=== PATIENT | male | born 1950 | race Caucasian/White ===

== ENCOUNTER 2016-06-19 19:47 | Emergency (ER) | payer MEDICARE, OTHER ==
[2016-06-19 19:59] VITALS: BP 117/86
[2016-06-19] MEDS ORDERED: ALBUTEROL SULFATE 2.5 MG/3 ML VIAL.NEB IH ONE (20:30)
[2016-06-19] MEDS ORDERED: ALBUTEROL SULFATE 2.5 MG/0.5 ML VIAL.NEB IH ONE ×2 (20:34→20:39)
--- OUTSIDE RECORDS SUMMARY | 2016-06-19 20:42 | XMS REPORT | Continuity of Care Document ---
:1950 Author Organization [facility] [place] [address] Care Team Providers Name Role Phone Brijesh Garibay Primary Care Provider [phone] Source Comments This disclosure is being made pursuant to the [employer] program and maynot contain all information available regarding this patient.[facility] Active Allergies and Adverse Reactions Allergen Noted Date Severity Reactions Comments Penicillins 03/20/2016 Low Dizziness Tomato 03/20/2016 High Hives Current Medications Be aware that medications may not be up to date as of this document. Alwaysverify current medications with the patient. Prescription Sig. Disp. Refills Start Date End Date Status albuterol (PROAIR Inhale 2 puffs Active HFA;PROVENTIL into the lungs HFA;VENTOLIN HFA) 108 every 4 (four) (90 BASE) MCG/ACT hours as needed inhaler for Wheezing. Ipratropium-Albuterol Inhale into the Active (COMBIVENT IN) lungs. budesonide-formoterol Inhale 2 puffs 0 12/20/2015 Active (SYMBICORT) 160-4.5 into the lungs 2 MCG/ACT inhaler (two) times daily. insulin detemir Inject 18 Units 1 Units 0 12/21/2015 Active (LEVEMIR) 100 UNIT/ML into the skin injection - vial nightly. atorvastatin (LIPITOR) Take 1 tablet by 90 tablet 1 12/21/2015 Active 80 MG tablet mouth daily. Insulin Pen Needle 32G 1 each by Does not 100 each 11 01/07/2016 Active X 4 MM MISC apply route daily. glucose blood Use as instructed 100 each 0 03/22/2016 Active (FREESTYLE TEST to check blood STRIPS) test strip sugar twice daily levothyroxine Take 1 tablet by 90 tablet 0 04/04/2016 Active (SYNTHROID, mouth every LEVOTHROID) 175 MCG morning. tablet traZODone (DESYREL) Take 1 tablet by 90 tablet 1 04/09/2016 Active 100 MG tablet mouth nightly. glipiZIDE ER Take 1 tablet by 90 tablet 1 04/09/2016 Active (GLUCOTROL XL) 5 MG 24 mouth daily. hr tablet baclofen (LIORESAL) 10 Take 1 tablet by 90 tablet 1 04/09/2016 Active MG tablet mouth 2 (two) times daily as needed. Active Problems Problem Noted Date Acquired hypothyroidism 03/20/2016 Non morbid obesity due to excess calories 12/21/2015 Mixed hyperlipidemia 12/21/2015 Type 2 diabetes mellitus without complication, with long-term current use 03/2016 of insulin ([facility]) Smoking 12/20/2015 Mild persistent asthma without complication 12/20/2015 Most Recent Encounters Date Type Specialty Providers Description 04/19/2016 Telephone Family Medicine Noreen Ruelas CMA Medication Update 04/04/2016 Telephone Family Medicine Quin Kahn, Medication Refill [facility] 04/04/2016 Refill Family Medicine Brijesh Garibay, Type 2 diabetes mellitus without complication, with long-term current use of insulin ([facility]) (Primary Dx); Muscle spasm 03/22/2016 Orders Only Family Medicine Noreen Ruelas CMA Mixed hyperlipidemia (Primary Dx); Acquired hypothyroidism; Type 2 diabetes mellitus without complication, with long-term current use of insulin ([facility]) 03/21/2016 Telephone Family Medicine Quin Kahn, Medication Management [facility] Immunizations Name Dates Previously Given Next Due Influenza, Inactivated, Trivalent, High Dose, 65Y and 12/20/2015 Older Pneumococcal Polysaccharide-23 12/20/2015 Social History Tobacco Use Types Packs/Day Years Used Date Current Every Day Smoker Smokeless Tobacco: Never Used Tobacco Cessation:Counseling Given: Yes Comments: Alcohol Use Drinks/Week oz/Week Comments No Last Filed Vital Signs Vital Sign Reading Time Taken Blood Pressure 128/74 03/20/2016 2:32 PM WELDING MACHINE OPERATOR SUBMERGED ARC Pulse 72 03/20/2016 2:32 PM WELDING MACHINE OPERATOR SUBMERGED ARC Temperature 36.9 C (98.4 F) 03/20/2016 2:32 PM WELDING MACHINE OPERATOR SUBMERGED ARC Respiratory Rate 16 03/20/2016 2:32 PM WELDING MACHINE OPERATOR SUBMERGED ARC Height 1.727 m (5' 8") 03/20/2016 2:32 PM WELDING MACHINE OPERATOR SUBMERGED ARC Weight 82.101 kg (181 lb) 03/20/2016 2:32 PM WELDING MACHINE OPERATOR SUBMERGED ARC Body Mass Index 27.53 03/20/2016 2:32 PM WELDING MACHINE OPERATOR SUBMERGED ARC Oxygen Saturation - - Plan of Care Patient Goal Type Goal Result Component HEMOGLOBIN A1C below 7.0 Health Maintenance Due Date Last Done Comments Eye (Ophthalmology) Exam 1960 Hepatitis C Screening 1968 Colonoscopy 2000 Well Adult Visit 2000 Zoster Vaccine 60+ 2010 AAA Screening (Medicare 07/15/2015 Covered) Foot Exam 12/19/2016 12/20/2015 Pneumococcal Low/Medium Risk 12/19/2016 12/20/2015 65+ (2 of 2 - PCV13) Lab-Lipids 03/21/2017 03/21/2016, 12/20/2015 Lab-Urine Microalbumin 03/21/2017 03/21/2016 Tetanus/Pertussis (1 - Tdap) 06/06/2017 Postponed from 1969 (Insurance / Financial) Influenza Immunization Completed 12/20/2015 Results from Last 3 Months TSH (03/21/2016 10:40 AM) Component Value Range TSH 0.83Comment:Test performed at [facility], [address] 0.36-3.74 uIU/ mL [place], [place] Microalbumin Urine Random (03/21/2016 10:40 AM) Component Value Range Microalbumin Random UR 13.5Comment:Test performed at [facility], < 31 mg/L [address] [place], [place] Lipid panel (03/21/2016 10:40 AM) Component Value Range Cholesterol, Total 106(L) 120-200 mg/dL Triglycerides 68 <150 mg/dL HDL Cholesterol 46 >39 mg/dL LDL 46 <100 mg/dL Cholesterol/HDL Ratio 2.3 VLDL Cholesterol 14Comment:Test performed at [facility], <35 mg/dL [address] [place], [place] Hemoglobin A1c (03/21/2016 10:40 AM) Component Value Range Hemoglobin A1C 7.2(H)Comment: 4.2-5.6 % ---- ADA Guidelines: 5.7-6.4% indicates increased risk of diabetes. Greater than 6.4% is diagnostic of diabetes. Less than 7% meets treatment goal of ADA. ---- Estimated Avg Glucose 160Comment: mg/dL Glucose value is an estimate of the patient's average glucose over the last 60 to 90 days, based on the measured HgbA1c value. Test performed at [facility], [address] [place], [place], [place]
--- OUTSIDE RECORDS SUMMARY | 2016-06-19 20:42 | XMS REPORT | Continuity of Care Document ---
:1950 Author Organization [facility] ([facility]) Address [address] [place] [address] Phone [phone] Care Team Providers Name Role Phone Abhijeet Brumfield Primary Care Provider [phone] Source Comments This disclosure is being made pursuant to the Care Everywhere program, applicable federal and state laws, and may not contain all informaitonavailable regarding this patient.[facility] ([facility]) Active Allergies and Adverse Reactions No Active Allergies Current Medications Not on file Active Problems Problem Noted Date Other and unspecified hyperlipidemia 02/20/2008 Unspecified hypothyroidism 02/20/2008 Head injury, unspecified 10/20/2006 Immunizations Name Dates Previously Given Next Due Influenza, unspecified 02/10/2008,02/14/2005 Social History Tobacco Use Types Packs/Day Years Used Date Never Assessed Last Filed Vital Signs Vital Sign Reading Time Taken Blood Pressure 130/82 02/20/2008 12:56 PM TRANSFER DRIVER Pulse 72 02/20/2008 12:56 PM TRANSFER DRIVER Temperature 35.3 C (95.54 F) 02/20/2008 12:56 PM TRANSFER DRIVER Respiratory Rate 12 02/20/2008 12:56 PM TRANSFER DRIVER Height - - Weight 88.796 kg (195 lb 12.2 oz) 02/20/2008 12:56 PM TRANSFER DRIVER Body Mass Index - - Oxygen Saturation - - Plan of Care Health Maintenance Due Date Last Done Comments HCV Screening 1950 Hepatitis B Vaccine (1 of 3 - Primary 1950 Series) Tdap Vaccine 1961 Lipid Disorder Screening 1968 Td Vaccine 1968 Colonoscopy 07/13/2000 Prostate Cancer Screening 2000 Zoster Vaccine 2010 Pneumococcal Vaccine (1 of 2 - PCV13) 07/15/2015 Influenza Vaccine: Seasonal (#1) 11/08/2015 02/10/2008, 02/14/2005 Results from Last 3 Months Not on file
--- NOTE | 2016-07-13 19:11 | ERNOTE ---
Dyspnea - General Presenting Symptoms: shortness of breath Time Seen by Provider: 06/19/16 20:04 Source: patient Exam Limitations: no limitations - Immun/Allergies/Home Medications Immunizations: IMMUNIZATION HX Immunizations Up to Date Yes History of Influenza Vaccine Yes Hx Pneumococcal Vaccination Yes Allergies/Adverse Reactions: Allergies amoxicillin Allergy (Verified 06/19/16 20:16) Penicillins Allergy (Verified 06/19/16 20:16) tomato Allergy (Verified 06/19/16 19:52) Home Medications: HOME MEDICATIONS Albuterol Sulfate [Ventolin Hfa] 1 inh INH Q5H PRN #1 inhaler 06/19/16 [Last Taken Unknown] Baclofen 10 mg PO BID 06/19/16 [Last Taken Unknown] Insulin Detemir [Levemir] 18 units SC HS 06/19/16 [Last Taken Unknown] Ipratropium/Albuterol Sulfate [Combivent Respimat Inhal [place]] 1 puff IH QID #1 aer.w.adap 06/19/16 [Last Taken Unknown] Levothyroxine Sodium [Tirosint] 175 mcg PO DAILY 06/19/16 [Last Taken Unknown] traZODone HCL [Oleptro ER] 100 mg PO HS 06/19/16 [Last Taken Unknown] Atorvastatin Calcium [Lipitor] 80 mg PO DAILY 06/24/16 [Last Taken Unknown] glipiZIDE [Glucotrol Xl] 5 mg PO DAILY 06/24/16 [Last Taken Unknown] - History of Present Illness Narrative: Patient has been out of his inhalers for two week and get more out of breath especially at night and can't get in with a PCP for another two week, just wants refill on his medication Initiating event: Reports: out of meds Frequency of episodes: Reports: occassional episodes Review of Systems - Review of Systems Constitutional: Absent: recent illness, fever Respiratory: Present: shortness of breath, cough Cardiology: Absent: chest pain Gastrointestinal/Abdominal: Absent: nausea, abdominal pain Genitourinary: Present: no symptoms reported Musculoskeletal: Present: no symptoms reported - Patient's Past Medical History Patient History - Medical: No pertinent hx Patient History - Cardiac/Respiratory: COPD Patient History - Cancer: No Hx of Cancer Patient History - Surgical Procedures: T & A Patient History - Other: None - Social History Living Situations: home Abuse History: No History of abuse Psych History: No pertinent hx Smoking Status: Former smoker Have you smoked in the past 12 months: Yes Do you dip or chew tobacco: No Smoking Stop Date: 06/12/16 Patient requests Smoking Cessation Consult: No Initiate information on Smoking Cessation: No Alcohol Use: none Drug Use: none - Immunizations Immunizations Up to Date: Yes Hx Pneumococcal Vaccination: Yes History of Influenza Vaccine: Yes Physical Exam - Physical Exam General Appearance: Present: wd/wn, alert, no apparent distress Respiratory: Present: no respiratory distress, lungs clear, decreased breath sounds Cardiovascular/Chest: Present: regular rate, rhythm Neurological Exam: Present: alert, oriented, normal mood/affect Skin Exam: Present: normal color, warm/dry ED Progress - Vital Signs Patient's Vital Signs:: I have reviewed the patient's vital signs. - Progress/Reassessment Chief Complaint: Dyspnea Departure Clinical Impression: COPD (chronic obstructive pulmonary disease) Qualifiers: COPD type: unspecified COPD Qualified Code(s): J44.9 - Chronic obstructive pulmonary disease, unspecified - Departure Disposition: Home self-care Condition: Good Instructions: Chronic Obstructive Pulmonary Disease, [id number] Additional Instructions: a prescription for your inhalers was send to the pharmacy take all your medications as prescribed and follow up with your doctor as scheduled Referrals: Billie Renteria ARNP [Non Staff Physicians] - Prescriptions: Albuterol Sulfate [Ventolin Hfa] 1 inh INH Q5H PRN #1 inhaler PRN Reason: Shortness Of Breath/Wheezing Ipratropium/Albuterol Sulfate [Combivent Respimat Inhal [place]] 1 puff IH QID #1 aer.w.adap
== END 2016-06-19 21:03 | disposition home or self-care (01) ==
LOC: ER 19:47
DX: J44.9 Chronic obstructive pulmonary disease, unspecified (principal); Z72.0 Tobacco use

== ENCOUNTER 2016-06-24 22:02 | Emergency (ER) | payer MEDICARE, OTHER ==
[2016-06-24] MEDS ORDERED: ALBUTEROL SULFATE/IPRATROPIUM 3 ML NEBU IH ONE ×2 (22:34→22:38)
[2016-06-24] MEDS ORDERED: METHYLPREDNISOLONE SOD SUCC/PF 40 MG/ML VIAL IV ONE (22:35)
[2016-06-24] MEDS ORDERED: METHYLPREDNISOLONE SOD SUCC/PF 125 MG/2 ML VIAL ONE (22:36)
[2016-06-24] MEDS ORDERED: ALBUTEROL SULFATE 2.5 MG/0.5 ML VIAL.NEB IH ONE (22:36)
--- OUTSIDE RECORDS SUMMARY | 2016-06-24 22:36 | XMS REPORT | Continuity of Care Document ---
:1950 Author Organization [facility] [place] [address] Care Team Providers Name Role Phone Brijesh Garibay Primary Care Provider [phone] Source Comments This disclosure is being made pursuant to the [employer] program and maynot contain all information available regarding this patient.[facility] Active Allergies and Adverse Reactions Allergen Noted [...] with long-term current use 03/2016 of insulin ([facility]) Smoking 12/20/2015 Mild persistent asthma without complication 12/20/2015 Most Recent Encounters Date Type Specialty Providers Description 04/19/2016 Telephone Family Medicine Noreen Ruelas CMA Medication Update 04/04/2016 Telephone Family Medicine Quin Kahn CMA Medication Refill 04/04/2016 Refill Family Medicine Brijesh Garibay DO Type 2 diabetes mellitus without complication, with long-term current use of insulin ([facility]) (Primary Dx); Muscle spasm Immunizations Name Dates Previously Given Next Due Influenza, Inactivated, Trivalent, High Dose, 65Y and 12/20/2015 Older Pneumococcal Polysaccharide-23 12/20/2015 Social History Tobacco Use Types Packs/Day Years Used Date Current Every Day Smoker Smokeless Tobacco: Never Used Tobacco Cessation:Counseling Given: Yes Comments: Alcohol Use Drinks/Week oz/Week Comments No Last Filed Vital Signs Vital Sign Reading Time Taken Blood Pressure 128/74 03/20/2016 2:32 PM TEACHER AIDE Pulse 72 03/20/2016 2:32 PM TEACHER AIDE Temperature 36.9 C (98.4 F) 03/20/2016 2:32 PM TEACHER AIDE Respiratory Rate 16 03/20/2016 2:32 PM TEACHER AIDE Height 1.727 m (5' 8") 03/20/2016 2:32 PM TEACHER AIDE Weight 82.101 kg (181 lb) 03/20/2016 2:32 PM TEACHER AIDE Body Mass Index 27.53 03/20/2016 2:32 PM TEACHER AIDE Oxygen Saturation - - Plan of Care [...] Completed 12/20/2015 Results from Last 3 Months Not on file
--- OUTSIDE RECORDS SUMMARY | 2016-06-24 22:36 | XMS REPORT | Continuity of Care Document ---
:1950 Author Organization [facility] ([facility]) Address [address] [place] [address] Phone [phone] Care Team Providers Name Role Phone Abhijeet Brumfield Primary Care Provider [phone] Source Comments This disclosure is being made pursuant to the Care Everywhere program, applicable federal and state laws, and may not contain all informaitonavailable regarding this patient.[facility] ([facility]) Active Allergies and Adverse Reactions No Active [...] Taken Blood Pressure 130/82 02/20/2008 12:56 PM SHAMPOO TECHNICIAN Pulse 72 02/20/2008 12:56 PM SHAMPOO TECHNICIAN Temperature 35.3 C (95.54 F) 02/20/2008 12:56 PM SHAMPOO TECHNICIAN Respiratory Rate 12 02/20/2008 12:56 PM SHAMPOO TECHNICIAN Height - - Weight 88.796 kg (195 lb 12.2 oz) 02/20/2008 12:56 PM SHAMPOO TECHNICIAN Body Mass Index - - Oxygen Saturation [...]
[2016-06-24] MEDS ORDERED: ALBUTEROL SULFATE 200 PUFF INHALER IH ONE (23:05)
[2016-06-24] MEDS ORDERED: ALBUTEROL SULFATE 60 PUFF INHALER IH ONE (23:14)
[2016-06-24 23:42] VITALS: BP 115/73
--- NOTE | 2016-06-25 08:38 | ERNOTE ---
Dyspnea - General Presenting Symptoms: shortness of breath Time Seen by Provider: 06/24/16 22:29 - Immun/Allergies/Home Medications Immunizations: IMMUNIZATION HX Immunizations Up to Date Yes History of Influenza Vaccine Yes Hx Pneumococcal Vaccination Yes Allergies/Adverse Reactions: Allergies amoxicillin Allergy (Verified 06/19/16 20:16) Penicillins Allergy (Verified 06/19/16 20:16) tomato Allergy (Verified 06/19/16 19:52) Home Medications: HOME MEDICATIONS Albuterol Sulfate [Ventolin Hfa] 1 inh INH Q5H PRN #1 inhaler 06/19/16 [Last Taken Unknown] Baclofen 10 mg PO BID 06/19/16 [Last Taken Unknown] Insulin Detemir [Levemir] 18 units SC HS 06/19/16 [Last Taken Unknown] Ipratropium/Albuterol Sulfate [Combivent Respimat Inhal [place]] 1 puff IH QID #1 aer.w.adap 06/19/16 [Last Taken Unknown] Levothyroxine Sodium [Tirosint] 175 mcg PO DAILY 06/19/16 [Last Taken Unknown] Trazodone HCl [Oleptro ER] 100 mg PO HS 06/19/16 [Last Taken Unknown] Atorvastatin Calcium [Lipitor] 80 mg PO DAILY 06/24/16 [Last Taken Unknown] Glipizide [Glucotrol Xl] 5 mg PO DAILY 06/24/16 [Last Taken Unknown] - History of Present Illness Narrative: pt is out of his inhalers and states that he feels short of breath. Denies any fevers or chills. does not feel sick. he feels short of breath. Review of Systems - Review of Systems Constitutional: Present: no symptoms reported EYE: Present: no symptoms reported ENT: Present: no symptoms reported Respiratory: Present: See HPI Cardiology: Present: no symptoms reported Gastrointestinal/Abdominal: Present: no symptoms reported Genitourinary: Present: no symptoms reported - Patient's Past Medical History Patient History - Medical: No pertinent hx, Diabetes Type 2 Insulin Dependent Patient History - Cardiac/Respiratory: Asthma, COPD, CVA/Stroke Patient History - Cancer: No Hx of Cancer Patient History - Surgical Procedures: T & A Patient History - Other: None - Social History Living Situations: home Abuse History: No History of abuse Psych History: No pertinent hx Smoking Status: Current every day smoker Patient requests Smoking Cessation Consult: No Initiate information on Smoking Cessation: No Alcohol Use: none Drug Use: none - Immunizations Immunizations Up to Date: Yes Hx Pneumococcal Vaccination: Yes History of Influenza Vaccine: Yes Physical Exam - Physical Exam General Appearance: Present: wd/wn, alert, no apparent distress Ears, Nose, Throat: Present: normal ENT inspection Neck: Present: normal inspection, nontender Respiratory: Present: no respiratory distress, normal breath sounds, no accessory muscle use, chest nontender, lungs clear - pt 's lungs are really clear however when I ask for forced expiration, there is very minimal bibasal wheezing that I hear. there are no rales or ronchi noted on exam, he is in no respiratory distress and after breathing treatment he felt much better and there was no wheezing Cardiovascular/Chest: Present: regular rate, rhythm, no murmur, normal peripheral pulses Gastrointestinal/Abdominal: Present: normal bowel sounds Extremity Exam: Present: normal inspection, non-tender ED Progress - Vital Signs Patient's Vital Signs:: I have reviewed the patient's vital signs. - X-Ray X-Ray #1 X-Ray: chest - Progress/Reassessment Chief Complaint: Dyspnea Plan - Plan Plan: pt does not feel ill, he has no fever. His mild wheezing only with forced expiration resolved with one breathing treatment. I will discharge pt with an inhaler. He was instructed to return if he feels worse. Departure Clinical Impression: Asthma exacerbation - Departure Disposition: Home self-care Condition: Good Instructions: Bronchospasm, Adult, How to [place] With Asthma, Teen
== END 2016-06-24 23:25 | disposition home or self-care (01) ==
LOC: ER 22:02
DX: J45.901 Unspecified asthma with (acute) exacerbation (principal); F17.210 Nicotine dependence, cigarettes, uncomplicated; E11.9 Type 2 diabetes mellitus without complications; Z79.4 Long term (current) use of insulin; J44.9 Chronic obstructive pulmonary disease, unspecified

== ENCOUNTER 2016-08-26 08:09 | Emergency (ER) | payer MEDICARE, OTHER ==
[2016-08-26 08:19] VITALS: BP 122/80
--- OUTSIDE RECORDS SUMMARY | 2016-08-26 08:38 | XMS REPORT | Continuity of Care Document ---
:1950 Author Organization [facility] [place] [address] Care Team Providers Name Role Phone Unavailable Primary Care Provider Unavailable Source Comments This disclosure is being made pursuant to the [email or web address] program and maynot contain all information available regarding this patient.[facility] Active Allergies and Adverse Reactions Allergen Noted [...] with long-term current use 03/2016 of insulin ([facility]) Smoking 12/20/2015 Mild persistent asthma without complication 12/20/2015 Most Recent Encounters Date Type Specialty Providers Description 08/07/2016 Refill Family Medicine Brijesh Garibay DO 08/05/2016 Refill Family Medicine Brijesh Garibay, Muscle spasm; Type 2 diabetes mellitus without complication, with long-term current use of insulin ([facility]) 07/06/2016 Orders Only Family Medicine Noreen Ruelas, [place] Immunizations Name Dates Previously Given Next Due Influenza, Inactivated, Trivalent, High Dose, 65Y and 12/20/2015 Older Pneumococcal Polysaccharide-23 12/20/2015 Social History Tobacco Use Types Packs/Day Years Used Date Current Every Day Smoker Smokeless Tobacco: Never Used Tobacco Cessation:Counseling Given: Yes Comments: Alcohol Use Drinks/Week oz/Week Comments No Last Filed Vital Signs Vital Sign Reading Time Taken Blood Pressure 128/74 03/20/2016 2:32 PM SAP GATHERER Pulse 72 03/20/2016 2:32 PM SAP GATHERER Temperature 36.9 C (98.4 F) 03/20/2016 2:32 PM SAP GATHERER Respiratory Rate 16 03/20/2016 2:32 PM SAP GATHERER Height 1.727 m (5' 8") 03/20/2016 2:32 PM SAP GATHERER Weight 82.101 kg (181 lb) 03/20/2016 2:32 PM SAP GATHERER Body Mass Index 27.53 03/20/2016 2:32 PM SAP GATHERER Oxygen Saturation - - Plan of Care [...]
--- OUTSIDE RECORDS SUMMARY | 2016-08-26 08:38 | XMS REPORT | Continuity of Care Document ---
:1950 Author Organization [facility] ([facility]) Address [address] [place] [address] Phone [phone] Care Team Providers Name Role Phone Billie Renteria Primary Care Provider [phone] Source Comments This disclosure is being made pursuant to the Care Everywhere program, applicable federal and state laws, and may not contain all informaitonavailable regarding this patient.[facility] ([facility]) Active Allergies and Adverse Reactions No Active [...] Taken Blood Pressure 130/82 02/20/2008 12:56 PM UNDERPRESSER HAND Pulse 72 02/20/2008 12:56 PM UNDERPRESSER HAND Temperature 35.3 C (95.54 F) 02/20/2008 12:56 PM UNDERPRESSER HAND Respiratory Rate 12 02/20/2008 12:56 PM UNDERPRESSER HAND Height - - Weight 88.796 kg (195 lb 12.2 oz) 02/20/2008 12:56 PM UNDERPRESSER HAND Body Mass Index - - Oxygen Saturation - - Plan of Care Date Type Specialty Providers Description 09/12/2016 Appointment Ophthalmology - Valentino Moreno MD Chief Comp: Patient Specialty [address] [place] [address] Visit [phone] (Fax) Health Maintenance Due Date Last Done Comments HCV Screening 1950 Hepatitis B Vaccine (1 of 3 - Primary 1950 Series) Tdap Vaccine 1961 Lipid Disorder Screening 1968 Td Vaccine 1968 Colonoscopy 07/13/2000 Prostate Cancer Screening 2000 Zoster Vaccine 2010 Pneumococcal Vaccine (1 of 2 - PCV13) 07/15/2015 Influenza Vaccine: Seasonal (Season Ended) 2016 02/10/2008, 02/14/2005 Results from Last 3 Months Not on file
[2016-08-26] MEDS ORDERED: ALBUTEROL SULFATE/IPRATROPIUM 3 ML NEBU IH ONE ×2 (08:39→08:56)
--- NOTE | 2016-08-26 08:39 | ERNOTE ---
Medical Problem HPI - General Chief Complaint: Diabetes Related Problem Time Seen by Provider: 08/26/16 08:28 Source: patient Exam Limitations: no limitations - Immun/Allergies/Home Medications Immunizations: IMMUNIZATION HX Immunizations Up to Date Yes History of Influenza Vaccine No Hx Pneumococcal Vaccination No Allergies/Adverse Reactions: Allergies amoxicillin Allergy (Verified 08/26/16 08:19) Penicillins Allergy (Verified 08/26/16 08:19) tomato Allergy (Verified 08/26/16 08:19) Home Medications: HOME MEDICATIONS Albuterol Sulfate [Ventolin Hfa] 1 inh INH Q5H PRN #1 inhaler 06/19/16 [Last Taken Unknown] Baclofen 10 mg PO BID 06/19/16 [Last Taken Unknown] Insulin Detemir [Levemir] 20 units SC DAILY 06/19/16 [Last Taken Unknown] Ipratropium/Albuterol Sulfate [Combivent Respimat Inhal [place]] 1 puff IH QID #1 aer.w.adap 06/19/16 [Last Taken Unknown] Levothyroxine Sodium [Tirosint] 175 mcg PO DAILY 06/19/16 [Last Taken Unknown] traZODone HCL [Oleptro ER] 100 mg PO HS 06/19/16 [Last Taken Unknown] Atorvastatin Calcium [Lipitor] 80 mg PO DAILY 06/24/16 [Last Taken Unknown] glipiZIDE [Glucotrol Xl] 5 mg PO DAILY 06/24/16 [Last Taken Unknown] - History of Present History Narrative: Patient is in the hospital with his son who's is in labor. He did not bring any of his medications and has not taken any of his medications this morning. He checked into the ER to get his insulin, which he usually takes in the morning. He denies any symptoms or concerns except wanting to get his insulin. Review of Systems - Review of Systems Constitutional: Present: recent illness - was admitted to [facility] a couple of days ago for heat stroke?. Absent: fever, chills EYE: Absent: vision changes ENT: Absent: nasal drainage, sore throat Respiratory: Absent: shortness of breath, cough Cardiology: Absent: chest pain Gastrointestinal/Abdominal: Absent: nausea, vomiting, abdominal pain Genitourinary: Present: no symptoms reported Neurological: Absent: headache - Patient's Past Medical History Patient History - Medical: Diabetes Type 2 Insulin Dependent, Hypothyroidism Patient History - Cardiac/Respiratory: Asthma, COPD, CVA/Stroke Patient History - Cancer: No Hx of Cancer Patient History - Surgical Procedures: Appendectomy Patient History - Other: None - Social History Living Situations: home Abuse History: No History of abuse Psych History: No pertinent hx Smoking Status: Current every day smoker Alcohol Use: none Drug Use: none - Immunizations Immunizations Up to Date: Yes Hx Pneumococcal Vaccination: No History of Influenza Vaccine: No Physical Exam - Physical Exam General Appearance: Present: wd/wn, alert, no apparent distress Respiratory: Present: no respiratory distress, normal breath sounds, lungs clear Cardiovascular/Chest: Present: regular rate, rhythm, no murmur Neurological Exam: Present: alert, oriented, normal mood/affect Skin Exam: Present: normal color, warm/dry ED Progress - Vital Signs Patient's Vital Signs:: I have reviewed the patient's vital signs. Vital Signs: Vital Signs 08/26/16 08/26/16 08:16 08:26 Temperature 36.5 C Pulse Rate 70 70 Respiratory 16 Rate Blood Pressure 122/80 O2 Sat by Pulse 96 Oximetry - Progress/Reassessment Chief Complaint: Diabetes Related Problem Departure - Departure Clinical Impression: Diabetes mellitus Qualifiers: Diabetes mellitus type: type 2 Diabetes mellitus complication status: without complication Diabetes mellitus watermelon inspector insulin use: with chcf use Qualified Code(s): E11.9 - Type 2 diabetes mellitus without complications Disposition: Home self-care Condition: Good Instructions: Diabetes Mellitus and Food Additional Instructions: take all your medications as prescribed Referrals: Billie Renteria ARNP [Primary Care Provider] -
[2016-08-26] MEDS ORDERED: ALBUTEROL SULFATE 2.5 MG/0.5 ML VIAL.NEB IH ONE (08:41)
[2016-08-26] MEDS ORDERED: INSULIN DETEMIR 100 UNITS/ML VIAL SC ONE (08:45)
== END 2016-08-26 09:06 | disposition home or self-care (01) ==
LOC: ER 08:09
DX: E11.9 Type 2 diabetes mellitus without complications (principal); F17.200 Nicotine dependence, unspecified, uncomplicated; E03.9 Hypothyroidism, unspecified; J44.9 Chronic obstructive pulmonary disease, unspecified; J45.909 Unspecified asthma, uncomplicated